=== PATIENT | female | born 1990 | race Caucasian/White ===

== ENCOUNTER 2017-09-12 14:48 | Emergency (ER) | payer OTHER ==
[~2017-09-12] VITALS: Ht 162.6 cm; Wt 59.0 kg
[~2017-09-12 14:48] MED LIST: SEPTRA 80/400 T1 TAB; [UNRECOGNIZED DRUG - OTHER]
== END 2017-09-12 18:10 | disposition home or self-care (01) ==
LOC: ER 14:48
DX: J03.80 Acute tonsillitis due to other specified organisms (principal)

== ENCOUNTER 2017-10-02 06:09 | Emergency (ER) | payer OTHER ==
[~2017-10-02] VITALS: Ht 162.6 cm; Wt 59.0 kg
== END 2017-10-02 13:23 | disposition home or self-care (01) ==
LOC: ER 06:09
DX: J35.01 Chronic tonsillitis (principal)

== ENCOUNTER → 2020-01-24 11:02 | Outpatient (CLI) | payer OTHER | END | disposition home or self-care (01) | LOC: LAB 11:02 | PROVIDERS: ATTEND Obstetrics & Gynecology Obstetrics | DX: E78.49 Other hyperlipidemia (principal); Z00.00 Encounter for general adult medical examination without abnormal findings; N39.0 Urinary tract infection, site not specified; E06.0 Acute thyroiditis ==

== ENCOUNTER 2024-04-29 15:19 | Emergency (ER) | payer OTHER ==
[~2024-04-29] VITALS: Ht 162.6 cm; Wt 65.8 kg
[2024-04-29] MEDS ORDERED: CEFTRIAXONE SODIUM 1,000 MG VIAL IM STA (20:20)
[2024-04-29] MEDS ORDERED: CEFTRIAXONE SODIUM 1,000 MG VIAL ONE (20:33)
[2024-04-29 20:46] LABS: HEMATOCRIT 35.3 % (36.0-45.00); HEMOGLOBIN 11.7 g/dL (12.0-15.00); MEAN CELL VOLUME 89.4 fL (80.00-100.00); MEAN CORPUSCULAR HEMOGLOBIN 29.5 pg (27.00-32.0); MEAN CORPUSCULAR HGB CONC 33.1 g/dl (32.0-36.0); PLATELET COUNT 257 K/uL (150-450); RED BLOOD COUNT 3.95 M/uL (4.00-6.00); RED CELL DISTRIBUTION WIDTH 14.1 % (11.5-14.5)
== END 2024-04-29 21:51 | disposition home or self-care (01) ==
LOC: ER 15:21
PROVIDERS: General Practice
DX: R05.9 Cough, unspecified (principal); Z20.822 Contact with and (suspected) exposure to COVID-19; Z88.8 Allergy status to other drugs, medicaments and biological substances